=== PATIENT | female | born 1980 | race Caucasian/White ===

== ENCOUNTER → 2016-05-31 | Outpatient (CLI) | payer OTHER ==
[~2016-05-31] MED LIST: ASPIR-TRIN325 MG PO; ASPIRIN325 MG PO; ASPIRIN81 MG PO; CARVEDILOL3.125 MG PO; CATAPRES 0.1MG0.1 MG PO; CELEXA40 MG PO; CLINDAMYCIN HC300 MG PO; FLEXERIL 10 MG10 MG PO; GLUCOPHAGE 500500 MG PO; IBUPROFEN800 MG PO; IMDUR ER TAB 3030 MG PO; JANUVIA 100 MG100 MG PO; LEVEMIR100 UNIT/1 SC; LIPITOR TAB 2020 MG PO; LISINOPRIL10 MG PO; LORTAB 5-325 M1 EACH PO; METOPROLOL TART25 MG PO; NEURONTIN 400400 MG PO; NITROGLYCERIN0.4 MG SL; NOVOLOG 10100 UNITS/ SC; OXYCODONE HCL10 MG PO; PERCOCET 10-321 EACH PO; PLAVIX 75 MG TA75 MG PO; PROTONIX40 MG PO; VITAMIN C 500500 MG PO; VITAMIN C500 M1 PO
[2016-05-31 10:41] LABS: HEMOGLOBIN 15.9 gm/dl (12.3-15.3); RED BLOOD COUNT 5.13 M/UL (4.00-5.10); WHITE BLOOD COUNT 11.1 K/UL (4.5-11.0)
[2016-05-31 10:55] LABS: BUN/CREATININE RATIO 13 (0-10)
== END ==
LOC: OPSV2 09:30
PROVIDERS: Podiatrist Foot & Ankle Surgery
DX: Z01.812 Encounter for preprocedural laboratory examination (principal); Z01.810 Encounter for preprocedural cardiovascular examination; M20.41 Other hammer toe(s) (acquired), right foot; M24.574 Contracture, right foot; L98.8 Other specified disorders of the skin and subcutaneous tissue; Z88.3 Allergy status to other anti-infective agents; Z88.0 Allergy status to penicillin; E11.9 Type 2 diabetes mellitus without complications; I25.2 Old myocardial infarction
CPT/HCPCS: 36415; 80048; 83036; 85027; 93005

== ENCOUNTER → 2016-06-05 | Day surgery (SDC) | payer OTHER ==
[~2016-06-05] VITALS: Ht 165.1 cm; Wt 98.9 kg
== END | disposition home or self-care (01) ==
LOC: OR 05:52
PROVIDERS: Podiatrist Foot & Ankle Surgery
PROC: 0JXQ0ZB Transfer Right Foot Subcutaneous Tissue and Fascia with Skin and Subcutaneous Tissue, Open Approach (ICD-10-PCS; 2016-06-05)
PROC: 0LQV0ZZ Repair Right Foot Tendon, Open Approach (ICD-10-PCS; principal; 2016-06-05 07:45)
PROC: 0LNV0ZZ Release Right Foot Tendon, Open Approach (ICD-10-PCS; 2016-06-05 07:45)
DX: M21.6X1 Other acquired deformities of right foot (principal); E11.621 Type 2 diabetes mellitus with foot ulcer; M20.41 Other hammer toe(s) (acquired), right foot; L57.0 Actinic keratosis; M25.774 Osteophyte, right foot; E11.40 Type 2 diabetes mellitus with diabetic neuropathy, unspecified; I10 Essential (primary) hypertension; E11.9 Type 2 diabetes mellitus without complications; E78.2 Mixed hyperlipidemia; I25.10 Atherosclerotic heart disease of native coronary artery without angina pectoris; M13.871 Other specified arthritis, right ankle and foot; I25.2 Old myocardial infarction; M19.90 Unspecified osteoarthritis, unspecified site; E10.69 Type 1 diabetes mellitus with other specified complication; F17.210 Nicotine dependence, cigarettes, uncomplicated; Z95.5 Presence of coronary angioplasty implant and graft; Z86.73 Personal history of transient ischemic attack (TIA), and cerebral infarction without residual deficits; Z98.51 Tubal ligation status; Z79.891 Long term (current) use of opiate analgesic; Z79.899 Other long term (current) drug therapy; Z88.1 Allergy status to other antibiotic agents; Z87.19 Personal history of other diseases of the digestive system
CPT/HCPCS: 11403; 82962; J1100; J2250; J2405; J2710; J2765; J2795; J3010; J3370; J7030; J7120